=== PATIENT | female | born 2000 | race Caucasian/White ===

== ENCOUNTER 2018-05-04 12:18 | Outpatient (CLI) | END 2018-05-04 14:57 | disposition home or self-care (01) ==

== ENCOUNTER 2018-08-14 18:37 | Outpatient (CLI) | payer MEDICAID, OTHER ==
[~2018-08-14] VITALS: Ht 162.6 cm; Wt 82.3 kg
[~2018-08-14 18:37] MED LIST: PREN-39 PO; PREN-47 PO
[2018-08-14 20:20] VITALS: BP 100/64; PULSE 93; RESP 18
--- NOTE | 2018-08-14 22:17 | TRIAGE ---
OB Triage Datetime Report Generated by CPN: 08/14/2018 22:17 Datetime: 08/14/2018 21:51 Stage of : OB Triage Datetime: 08/14/2018 21:10 Labor Evaluation Monitor Mode: External Quality: Mild Pattern: Normal: <= 5 Contractions in 10 Minutes Resting Tone [place]: Relaxed Heart Rate FHR Baseline Rate: 140 Monitor Mode: External US FHR Baseline Changes: No Baseline Change Variability: Moderate 6-25 bpm Accelerations: 15X15 Decelerations: None Category: Category I Pain Presence: None/Denies Pain Type: N/A Datetime: 08/14/2018 20:09 Vaginal Exam Membrane Status: Intact Datetime: 08/14/2018 20:05 Stage of : OB Triage Datetime: 08/14/2018 19:42 Stage of : OB Triage Labor Evaluation Monitor Mode: External Quality: Mild Pattern: Normal: <= 5 Contractions in 10 Minutes Resting Tone [place]: Relaxed Heart Rate FHR Baseline Rate: 150 Monitor Mode: External US Pain Assessment Pain Scale: 4 Pain Presence: Intermittent Pain Type: Cramping; Pressure Pain Location: Abdomen; Perineum Datetime: 08/14/2018 19:30 Time of Arrival: 08/14/2018 18:34 EGA: 39.0 Arrived By: Ambulatory Arrived From: Home Chief Complaint: w/ hx c/s x1 scheduled for 1800 13 c/o occAs uc, pressure and sm amt spottin g when wiped Movement: Present Contractions: Irregular Rupture of Membranes: Denies Vaginal Bleeding: Scant Vaginal Discharge: Present Recent Sexual Intercouse: Denies Abdominal Trauma: Not Applicable Patient Complaints: Cramping Time Provider Notified: 08/14/2018 20:05 Provider Notified: Dr Silva Initial Plan: EFM,BPP Datetime: 05/04/2018 12:58 Fall Risk Assessment Fall Score: 0 Fall Risk Score Definition: No Risk: No action required Datetime: 05/04/2018 12:54 EGA: 24.3
--- NOTE | 2018-09-05 15:26 | PN ---
Triage Information Date/Time Late entry note for exam on August 14, 2018 Reason for visit: Uterine contractions Weeks of Gestation 39 weeks /Para 2 para 1 Diabetes: none Hypertention: none Additional information 18-year-old with IP at 39 weeks and history of x1 presented with complaint of cramping as well as some spotting when she wiped herself. She has a scheduled for repeat section tomorrow at 1800. Denies any leaking of fluid, vaginal bleeding decreased movement or any other problem. Denies any complication during her course. Objective Heart Rate: 140's Heart Rate Comments Category 1 Contractions less than 5 and 10 minutes noted Baseline heart 140s Contractions: 6-10 Minutes Apart Exam General appearance: Alert and oriented x4 does not appear to be in any acute distress Abdomen: Soft, gravid, fundal height consider gestational age No tenderness, no redness, no guarding, no rigidity NST: Category 1 Cervix closed and long Symptoms resolved after hydration Was asymptomatic after hydration PROCEDURE: US OB biophysical profile. CLINICAL INDICATION: Contractions. well-being TECHNIQUE: Multiple sonographic images of the pelvis were obtained. The images were reviewed on a PACS workstation. COMPARISON: None FINDINGS: There is a single fetus in longitudinal lie, cephalic presentation. Cardiac activity is documented at 159 beats per minute. . The placenta is posterior and well clear of the cervix. Amniotic fluid index equals 10.6 with maximum vertical pocket of 4.1 cm. Biophysical profile: movement 2/2 tone 2/2. breathing 2/2 ISAAC 2/2 Total 03/20 IMPRESSION: 1. Biophysical profile of 03/20. RPTAT:AAJJ . Disposition: Discharge Assessment/Plan 39 weeks History of x1 False labor pain, resolved after hydration testing reassuring No evidence of labor No abdominal pain Patient stable for discharge home Follow-up as a scheduled tomorrow for repeat as a scheduled at 1600 p.m. with primary OB Strict labor precautions kick count again explained to the patient All questions were answered to patient's best satisfaction FELICITY MATHUR MD Sep 05, 2018 15:26
== END 2018-08-14 21:53 | disposition home or self-care (01) ==
LOC: OBT 18:37 → L-D 18:38 → OBT 21:53
PROVIDERS: ATTEND Obstetrics & Gynecology
DX: O47.1 False labor at or after 37 completed weeks of gestation (principal)
CPT/HCPCS: 76818; Z7500; G0463

== ENCOUNTER 2018-08-15 07:30 | Inpatient (IN) | payer OTHER ==
[~2018-08-15] VITALS: Ht 162.6 cm; Wt 79.2 kg
[~2018-08-15 07:30] MED LIST changes: +EPHEDrine SULFATE 50 MG/5 ML SYG ONE; +OXYTOCIN 30 UNITS/LR 500 ML BAG IV ONE; -PREN-39 PO
[2018-08-15 16:59] VITALS: BP 112/64; PULSE 68; RESP 18
[2018-08-15] MEDS ORDERED: METHYLERGONOVINE 0.2 MG INJ IM PRN ×2 (17:00→22:00)
[2018-08-15] MEDS ORDERED: OXYTOCIN 30 UNITS/LR 500 ML IV PRN ×2 (17:00→22:00)
[2018-08-15] MEDS ORDERED: CARBOPROST 250 MCG INJ IM PRN ×2 (17:00→22:00)
[2018-08-15] MEDS ORDERED: CEFAZOLIN 2 GM/50 ML (PMX) 50 ML IVPB SCH (17:00)
[2018-08-15] MEDS ORDERED: OXYTOCIN 30 UNITS/LR 500 ML IV SCH ×2 (17:00→21:50)
[2018-08-15] MEDS ORDERED: MISOPROSTOL 200 MCG TAB PR PRN ×2 (17:00→22:00)
[2018-08-15 17:30] VITALS: Ht 162.6 cm; Wt 79.2 kg
[2018-08-15] MEDS: LACTATED RINGER'S 1,000 ML IV SCH (17:54)
--- NOTE | 2018-08-15 18:11 | PREAC ---
Date/Time of Note Date/Time of Note DATE: 08/15/18 TIME: 18:10 Anesthesia Eval and Record Evaluation Time Pre-Procedure Interview DATE: 08/15/18 TIME: 18:10 Age 18 Sex female NPO: 8 hrs Preoperative diagnosis intrauterine Planned procedure repeat c section Past Medical History Past Medical History: None : : (2), Para: (1) Surgery & Anesthesia Issues No known issue Meds Anticoagulation: No Beta Brooke within 24 hr: No Reason Beta Brooke not given: Pt. not on B-Brooke Reported Medications [id number] Acid (Prenata Chewable) 1 Each Tab.chew, 1 EACH PO DAILY, TAB.CHEW 09/25/13 Discontinued Reported Medications Vits W-Ca,Fe,Fa(<1MG) ( Vitamins) 1 Tab Tablet, 1 TAB PO DAILY 10/12/13 Current Medications Lactated Ringer's 1,000 ml @ 125 mls/hr Q8H IV Last administered on 08/15/18at 17:54; Admin Dose 125 MLS/HR; Start 08/15/18 at 16:57 Cefazolin Sodium/ Dextrose 50 ml @ 100 mls/hr ONCE IVPB ; Start 08/15/18 at 17:00 Oxytocin/Lactated Ringer's 500 ml @ 125 mls/hr POST IV ; Start 08/15/18 at 17:00 Oxytocin/Lactated Ringer's 500 ml @ 0 mls/hr ONCE PRN IV VAGINAL BLEEDING; Start 08/15/18 at 17:00 Methylergonovine Maleate (Methergine) 0.2 mg ONCE PRN IM VAGINAL BLEEDING; Start 08/15/18 at 17:00 Carboprost Tromethamine (Hemabate) 250 mcg ONCE PRN IM VAGINAL BLEEDING; Start 08/15/18 at 17:00 Misoprostol (Cytotec) 1,000 mcg ONCE PRN MO VAGINAL BLEEDING; Start 08/15/18 at 17:00 Meds reviewed: Yes Allergies Coded Allergies: No Known Drug Allergies (Unverified Allergy, Unknown, 08/14/18) Allergies Reviewed: Yes Labs/Studies Labs Reviewed: Reviewed by anesthesiologist test: N/A Pre-procedure Exam Last vitals Vital Signs Date Temp Pulse Resp B/P (MAP) Pulse Ox O2 O2 Flow FiO2 Time Delivery Rate 08/15/18 98.0 68 18 112/64 Room Air 16:59 (80) Airway: Adequate mouth opening, Adequate thyromental dist Mallampati: Mallampati II Teeth: Normal Lung: Normal Heart: Normal ASA Physical Status ASA physical status: 2 Emergency: None Planned Anesthetic Neuraxial: Spinal Planned Pain Management Sub-arachniod narcotics, Parenteral pain med Pre-operative Attestations Prior to commencing anesthesia and surgery, the patient was re-evaluated, there was verification of: *The patient's identity *The results of appropriate recent lab work and preoperative vital signs *The above evaluation not changing prior to induction *Anesthetic plan, risk benefits, alternative and complications discussed with patient/family; questions answered; patient/family understands, accepts and wishes to proceed. ADAMARIS MENDENHALL MD Aug 15, 2018 18:11
[2018-08-15] MEDS ORDERED: LACTATED RINGER'S 1,000 ML IV ONE (18:12)
[2018-08-15] MEDS ORDERED: CITRIC ACID/NA CITRATE 30 ML CUP PO ONE (18:30)
[2018-08-15] MEDS ORDERED: METOCLOPRAMIDE 10 MG INJ IV ONE (18:30)
[2018-08-15] MEDS ORDERED: FAMOTIDINE 20 MG INJ IV ONE (18:30)
--- NOTE | 2018-08-15 21:50 | HP ---
Date/Time of Note Date/Time of Note DATE: 08/15/18 TIME: 21:47 OB - History Hx of Present Free Text/Dictation 18 years old 2 para 1001 with single intrauterine at 39 weeks and 1 days with previous delivery desiring repeat delivery. She states good movement. She denies nausea, vomiting, shortness of breath, chest pain, headache, visual changes, vaginal bleeding or LOF. Chief Complaint: Scheduled for repeat delivery Last Menstrual Period: Nov 16, 2017 Estimated Due Date: Aug 21, 2018 : 2 Para: 1 Spontaneous : 0 Therapeutic : 0 Care: Good Care Ultrasounds: Normal mid trimester US Obstetrical Complications: None Medical Complications: None Past Family/Social History * Past Medical, Surgical, Family and Obstetric Histories reviewed from chart. Blood Type: O+ Rubella: immune RPR/VDRL: Negative GBS Status: Negative HBsAG: Negative OB Admission Exam Vital Signs Vital Signs Vital Signs Date Temp Pulse Resp B/P (MAP) Pulse Ox O2 O2 Flow FiO2 Time Delivery Rate 08/15/18 98.0 68 18 112/64 Room Air 16:59 (80) Physical Exam HEENT: WNL Heart: Rhythm Normal Lungs: Clear Abdomen: WNL Extremities: Normal Membranes: Intact Heart Rate: 140's Accelerations: Accelerations Present Decelerations: No Decelerations Varibility: Moderate Contractions on Admission: None Last 72 hours Lab Results CBC & BMP 08/15/18 17:37 OB Assessment/Plan Other plan: 18-year-old 2 para 1001 with single intrauterine at 39 weeks and 1 day with previous delivery desiring repeat delivery. - FHR: No sign of metabolic acidosis- Category I - Continuous EFM, toco - CBC, blood type and screen - Please see the orders - O+/Rubella: Immune - GBS: negative The risk of delivery including but not limited to bleeding, infection, injury to other organs (bowel, bladder, ureter, vessels, nerves), injury to fetus, blood transfusion, blood transfusion related infection, risk of anesthesia, adhesion, needs for future , removal of uterus or any other indicated surgery was discussed with the patient and her family. She expressed understanding. All of her questions were answered. She signed the informed con sent. PHYSICIAN'S VERIFICATION OF INFORMED CONSENT The patient was counseled regarding the procedure, its indications, risks, potential complications and alternatives and any questions were answered. Consent was obtained. PLANNED PROCEDURE/TREATMENT: delivery with possible using vacuum/f orceps and any other indicated surgery PHYSICIAN'S VERIFICATION OF INFORMED CONSENT FOR BLOOD TRANSFUSION: There is a reasonable possibility that blood transfusion will be necessary as a result of t he patient's procedure. I have discussed the following with the patient/patient's legal retail representative: An explanation of the benefits and risks of the transfusion of blood or blood products and the possible alternatives. All questions have been answered to the patient's satisfaction. INFORMED CONSENT:The patient has been informed of: The nature of the proposed care, treatment, services, medications, interventions or procedures. Potential benefits, risks or side effects, including potential problems related to recuperation. The likelihood of achieving care treatment and service goals. Reasonable alternatives to the proposed care, treatment and service. The relevant risks, benefits and side effects related to alternatives, including the possible results of not receiving care, treatment and services. When indicated, any limitations on the confidentiality of information learned from or about the patient. If appropriate, the risks, benefits and alternatives of the drugs to be used for sedation/analgesia including moderate sedation. If appropriate, patient has been provided information on the risks, benefits and alternatives to the transfusion of blood and/or blood products. If appropriate, patient has been provided information regarding the [place] Blood Act. KATIE HIGGINS Aug 15, 2018 21:50
--- NOTE | 2018-08-15 21:54 | OPR ---
Operative Report Planned Procedure Procedure date Aug 15, 2018 Procedure(s) Repeat low transverse delivery Performed by see signature line Ornament Stitcher: JULISA NEGRETE MD Anesthesiologist: ADAMARIS MENDENHALL MD Pre-procedure diagnosis 18 years old 2 para 1001 with single intrauterine at 39 weeks and 1 days with previous delivery desiring repeat delivery [id number] Anesthesia Type: [id number] spinal Post-Procedure Post-procedure diagnosis 18 years old 2 para 1001 with single intrauterine at 39 weeks and 1 days with previous delivery desiring repeat delivery Findings 1. Normal uterus, fallopian tubes and ovaries 2. Viable female in cephalic presentation. 8 at one minute and 9 in 5 minutes. Weight: 6 lbs 14 oz. Time of delivery: 22:26 3. Placenta with three vessel cord 4. Amniotic fluid - Clear Estimated Blood Loss: 600 - 700 mls Specimen(s) none Grafts/Implant(s) none Complication(s) none Pt Condition post procedure: stable Disposition: PACU Procedure Description INDICATION AND HISTORY: A 18 years old 2 para 1001 with single intrauterine at 39 weeks and 1 days with previous delivery desiring repeat delivery. The risk of delivery including but not limited to bleeding, infection, injury to other organs (bowel, bladder, ureter, vessels, nerves), in jury to fetus, blood transfusion, blood transfusion related infection, risk of anesthesia, adhesion, needs for future , removal of uterus or any other indicated surgery was discussed with the patient and her family. She expressed understanding. All of her questions were answered. She signed the informed consent. DESCRIPTION OF OPERATION: The patient was taken to the operating room, where she was identified and the procedure was verified. The patient received two gram of Ancef 30 minutes prior to surgery. Spinal anesthesia was placed. The patient placed in the dorsal supine position with a left tilt. The heart rate was 135 bpm. The patient was then prepped and draped in the normal sterile fashion. A Pfannenstiel skin incision was made and carried down to the fascia with knife. The fascia was incised in the midline and the fascial incision was carried laterally with Montanez scissors. The superior portion of the fascial incision was then grasped with Toñito clamps and tented up and dissected off the underlying rectus muscle with sharp dissection. The lower portion of the fascial incision was then made in a similar fashion. The rectus muscle was and the peritoneum was entered. The peritoneal incision was then stretched and a bladder blade was inserted* an Pawel retractor was inserted. Then, an incision was made in the lower uterine segment in a transverse fashion with a knife and extended bluntly. The was delivered atraumatically in cephalic presentation with the above findings. The umbilical cord was clamped and cut. The neonatology resuscitation team was present and the baby was handed to them. A cord blood sample was obtained for further evaluation. The placenta and membrane, which appeared normal were Removed. The uterus was exteriorized and cleared of all clot and debris. The uterus was then closed in a two layer fashion with 0-Monocryl. At the time of closure, hemostasis was noted. The gutters were irrigated. The peritoneum was reapproximated with 3-0 *Vicryl. The muscle was reapproximated with 3-0 Vicryl. The fascia was approximated with 0-Vicryl in a running fashion. The subcutaneous tissue was re approximated with 3-0 vicryl. The skin was closed with 4-0 Monocryl. All instruments, sponges and needle counts were correct x3. The patient tolerated the procedure well. She transferred to the recovery room in stable condition. KATIE HIGGINS Aug 15, 2018 21:54
[2018-08-15] MEDS ORDERED: morphine SULFATE/PF (10 MG/10 ML) INJ ONE (21:55)
[2018-08-15] MEDS ORDERED: OXYTOCIN 30 UNITS/LR 500 ML IV ONE (21:55)
[2018-08-15] MEDS ORDERED: METHYLERGONOVINE 0.2 MG TAB PO PRN (22:00)
[2018-08-15] MEDS ORDERED: IBUPROFEN 800 MG TAB PO SCH (22:00)
[2018-08-15] MEDS ORDERED: PHENYLephrine (100 MCG/ML) 10ML SYG ONE (22:08)
[2018-08-15] MEDS ORDERED: ONDANSETRON 4 MG INJ ONE (22:08)
[2018-08-15] MEDS ORDERED: FENTAnyl 50 MCG/ML VIAL IV PRN ×3 (22:30)
[2018-08-15] MEDS ORDERED: ONDANSETRON 4 MG INJ IV PRN ×2 (22:30)
[2018-08-15] MEDS ORDERED: DIPHENHYDRAMINE 50 MG INJ IV PRN ×2 (22:30)
[2018-08-15] MEDS ORDERED: MEPERIDINE 25 MG INJ IV PRN (22:30)
[2018-08-15] MEDS ORDERED: HYDROmorphONE 0.5 MG/0.5 ML SYG IV PRN ×2 (22:30)
[2018-08-15] MEDS ORDERED: HYDROmorphONE 1 MG/5 ML IV SYRINGE IV PRN ×3 (22:30)
[2018-08-15] MEDS ORDERED: NALOXONE (0.4 MG/ML) INJ IV PRN (22:30)
[2018-08-15] MEDS ORDERED: EPHEDrine SULFATE 50 MG/5 ML SYG IV PRN (22:30)
[2018-08-15] MEDS ORDERED: ZOLPIDEM 5 MG TAB PO PRN (22:30)
[2018-08-15] MEDS ORDERED: KETOROLAC 30 MG INJ IV PRN ×2 (22:30)
[2018-08-15] MEDS ORDERED: PROCHLORPERAZINE 10 MG INJ IV PRN (22:30)
[2018-08-16] VITALS (7 sets, daily range): BP systolic 96–107; BP diastolic 52–68; PULSE 75–95; RESP 18–20
[2018-08-16] MEDS: DEXTROSE 5%-LR 1,000 ML IV SCH ×4 (05:50→21:50)
--- NOTE | 2018-08-16 06:43 | NUR ---
eoss. stable vital signs. afebrile. no respiratory distress. scanty lochia. oral fluids tolerated well. bonding well with baby. for cbc today
[2018-08-16] MEDS: SENNA/DOCUSATE NA (8.6MG/50MG) TAB PO SCH ×2 (09:00→20:33)
--- NOTE | 2018-08-16 10:33 | PAC ---
Date/Time of Note Date/Time of Note DATE: 08/16/18 TIME: 10:33 Post-Anesthesia Notes Post-Anesthesia Note Last documented vital signs Vital Signs Date Temp Pulse Resp B/P (MAP) Pulse Ox O2 O2 Flow FiO2 Time Delivery Rate 08/16/18 99.0 83 20 96/54 (68) 96 Room Air 08:00 Activity: WNL Respiratory function: WNL Cardiovascular function: WNL Mental status: Baseline Pain reasonably controlled: Yes Hydration appropriate: Yes Nausea/Vomiting absent: Yes ADAMARIS MENDENHALL MD Aug 16, 2018 10:33
[2018-08-16] MEDS ORDERED: HYDROCODONE/APAP (5/325) TAB NGT PRN (11:00)
[2018-08-16] MEDS ORDERED: DIPHTH/TET/ACEL PERTUSS (ADULT) 0.5 ML VIAL IM* ONE (11:00)
[2018-08-16] MEDS: HYDROCODONE/APAP (5/325) TAB GTB SCH ×2 (14:00→21:28)
[2018-08-16] MEDS: LANOLIN HPA 1 PKT TOP PRN (16:04)
--- NOTE | 2018-08-16 18:39 | NUR ---
EOSS: PT IS IN STABLE CONDITION VSS, DENIES PAIN AND DISCOMFORT AT THIS TIME. PT IS UP AND AMBULATING IN THE ROOM WITHOUT DIFFICULTY. F/C D/C AT 1600 PT DUE TO VOID. PT ONLY, BONDING WITH THE BABY WELL.
[2018-08-16] MEDS: LACTATED RINGER'S 1,000 ML IV SCH (21:27)
[2018-08-16] MEDS: IBUPROFEN 800 MG TAB PO SCH (21:28)
[2018-08-17 04:18] VITALS: BP 100/59; PULSE 80; RESP 18
[2018-08-17] MEDS: HYDROCODONE/APAP (5/325) TAB GTB SCH ×3 (05:50→21:43)
[2018-08-17] MEDS: IBUPROFEN 800 MG TAB PO SCH ×3 (05:51→21:43)
--- NOTE | 2018-08-17 06:10 | NUR ---
EOSS: Vital signs stable. No acute distress. Ambulating well. C/S dressing remains intact. Pumping breast milk. Bonding well with baby.
--- NOTE | 2018-08-17 06:53 | PN ---
Date/Time of Note Date/Time of Note DATE: 08/17/18 TIME: 06:50 OB Subjective Subjective Subjective Late entry note. Patient seen on 08/16/2018 at 20:00 POD#1 Patient is doing well. She denies nausea, vomiting, shortness of breath, chest pain, headache. She has been ambulating without difficulty, tolerating regular diet. Pain is well controlled on current medications OB Objective Objective Objective VS - Last 72 Hours, by Label Date Temp Pulse Resp B/P (MAP) Pulse Ox O2 O2 Flow FiO2 Time Delivery Rate 08/17/18 98.1 80 18 100/59 Room Air 04:18 (73) 08/16/18 98.9 95 18 98/52 (67) Room Air 20:00 08/16/18 98.3 82 19 107/68 98 Room Air 16:05 (81) 08/16/18 99.1 80 18 96/55 (69) 97 Room Air 12:00 08/16/18 99.0 83 20 96/54 (68) 96 Room Air 08:00 08/16/18 98.4 85 19 102/58 Room Air 04:00 (73) 08/16/18 75 20 98/56 (70) Room Air 03:14 08/16/18 98.4 77 19 101/63 98 Room Air 02:45 (76) 08/15/18 98.0 68 18 112/64 Room Air 16:59 (80) General: AAO X 3, comfortable, NAD, appropriate mood and affect. Heart: RRR +S1, +S2, no murmurs. Lungs: Clear to auscultation (B/L), no rales, rhonchi or wheezing. ABD: +BS. Soft, non-tender. Uterus 2 cm below umbilicus Incision: Clear, dry, intact. No erythema, drainage or induration. Flank: No CVA tenderness (B/L) LE: Mild edema. No clubbing, cyanosis, thigh or calf tenderness (B/L). Homans 'sign is negative OB Assessment/Plan Other plan: 18-year-old 2 para 2002 s/p repeat delivery at 39 weeks and 1 day. POD#1 - AF, VSS - Baby is doing well, at bed side. She is bonding well - Contraception methods with R/B/A/FR discussed - Continue care KATIE HIGGINS Aug 17, 2018 06:53
--- NOTE | 2018-08-17 06:55 | PN ---
Date/Time of Note Date/Time of Note DATE: 08/17/18 TIME: 06:53 OB Subjective Subjective Subjective POD#2 Patient is doing well. She denies nausea, vomiting, shortness of breath, chest pain, headache. She has been ambulating without difficulty, tolerating regular diet. Pain is well controlled on current medications OB Objective Objective Objective Vital Signs Date Temp Pulse Resp B/P (MAP) Pulse Ox O2 O2 Flow FiO2 Time Delivery Rate 08/17/18 98.1 80 18 100/59 Room Air 04:18 (73) 08/16/18 98 16:05 General: AAO X 3, comfortable, NAD, appropriate mood and affect. ABD: +BS. Soft, non-tender. Uterus 2 cm below umbilicus Incision: Clear, dry, intact. No erythema, drainage or induration. Flank: No CVA tenderness (B/L) LE: Mild edema. No clubbing, cyanosis, thigh or calf tenderness (B/L). Homans 'sign is negative OB Assessment/Plan Other plan: 18-year-old 2 para 2002 s/p repeat delivery at 39 weeks and 1 day. POD#2 - AF, VSS - Baby is doing well, at bed side. She is bonding well - Contraception methods with R/B/A/FR discussed - Continue care - Discharge home tomorrow - Rx and instruction given - Follow up in one and 6 weeks KATIE HIGGINS Aug 17, 2018 06:55
--- NOTE | 2018-08-17 06:56 | DS ---
Date/Time of Note Date/Time of Note DATE: 08/17/18 TIME: 06:55 Obstetrical Discharge Record Final Diagnosis Final Diagnosis: Term delivered Other Final Diagnosis 18-year-old 2 para 2002 s/p repeat delivery at 39 weeks and 1 day. POD#2. Her course was unremarkable. She is ambulating and tolerating regular diet. She is voiding without difficulty. Pain is controlled on current medication. - AF, VSS - Baby is doing well, at bed side. She is bonding well - Contraception methods with R/B/A/FR discussed - Continue care - Discharge home tomorrow - Rx and instruction given - Follow up in one and 6 weeks Section Section: Repeat Condition on Discharge Physical Assessment Voiding: Yes Bowel Movement: Yes Breast: Soft, non-tender Fundus: Firm Calf Tenderness: No Patient Condition: Stable KATIE HIGGINS Aug 17, 2018 06:56
[2018-08-17 08:00] VITALS: BP 90/53; PULSE 71; RESP 17
[2018-08-17] MEDS: SENNA/DOCUSATE NA (8.6MG/50MG) TAB PO SCH ×2 (09:56→21:43)
[2018-08-17 16:00] VITALS: BP 101/58; PULSE 88; RESP 20
--- NOTE | 2018-08-17 17:25 | NUR ---
EOSS: PT IS IN STABLE CONDITION VSS, DENIES PAIN AND DISCOMFORT , BONDING WITH THE BABY WELL.
[2018-08-17 20:15] VITALS: BP 94/60; PULSE 80; RESP 18
[2018-08-18 04:00] VITALS: BP 98/53; PULSE 84; RESP 18
--- NOTE | 2018-08-18 05:20 | NUR ---
EOSS: PT IS IN STABLE CONDITION. NO DISTRESS NOTED. FUNDUS FIRM WITH SMALL AMOUNT OF LOCHIA NOTED. BONDING WELL WITH BABY.
[2018-08-18] MEDS: HYDROCODONE/APAP (5/325) TAB GTB SCH (05:41)
[2018-08-18] MEDS: IBUPROFEN 800 MG TAB PO SCH (05:41)
[2018-08-18 07:55] VITALS: BP 102/50; PULSE 78; RESP 16
[2018-08-18] MEDS ORDERED: MEASLES,MUMPS,RUBELLA VACCINE INJ SC* ONE (09:00)
[2018-08-18] MEDS ORDERED: DIPHTH/TET/ACEL PERTUSS (ADULT) 0.5 ML VIAL IM* ONE (09:00)
[2018-08-18] MEDS: SENNA/DOCUSATE NA (8.6MG/50MG) TAB PO SCH (10:37)
[2018-08-18] MEDS: LANOLIN HPA 1 PKT TOP PRN (11:06)
--- NOTE | 2018-08-18 11:32 | NUR ---
DISCHARGED IN STABLE CONDITION WITH BABY
== END 2018-08-18 11:55 | disposition home or self-care (01) | DRG 788 ==
LOC: L-D 16:42 → PP1 08-16 02:30
PROVIDERS: ADMIT Obstetrics & Gynecology; ATTEND Obstetrics & Gynecology
PROC: 10D00Z1 Extraction of Products of Conception, Low, Open Approach (ICD-10-PCS; principal; 2018-08-15 18:00)
DX: O34.211 Maternal care for low transverse scar from previous cesarean delivery (principal); Z3A.39 39 weeks gestation of pregnancy; Z37.0 Single live birth
CPT/HCPCS: 85025; 85610; 85730; 86592; 86850; 86900; 86901; 90715; 99464; J0690; J1885; J2274; J2370; J2405; J2590; J2765; J7120; J7121